=== PATIENT | male | born 1975 | race Caucasian/White ===

== ENCOUNTER 2020-01-02 15:11 | Emergency (ER) | payer MEDICAID, OTHER ==
[~2020-01-02] VITALS: Ht 170.2 cm; Wt 121.1 kg
[2020-01-02 15:16] VITALS: BP 145/111
[2020-01-02 15:45] VITALS: BP 145/111
== END 2020-01-02 15:45 | disposition home or self-care (01) ==
LOC: MED 15:11
DX: H53.9 Unspecified visual disturbance (principal); F20.9 Schizophrenia, unspecified; F17.210 Nicotine dependence, cigarettes, uncomplicated; Z88.0 Allergy status to penicillin
CPT/HCPCS: 99281